=== PATIENT | male | born 1960 | race American Indian/Alaskan Native ===

== ENCOUNTER 2020-08-16 04:31 | Emergency (ER) | payer OTHER, SELFPAY ==
[2020-08-16 04:32] VITALS: BP 163/78; PULSE 70; RESP 18; TEMP 36.4; O2SAT 98; BMI 36.8
--- NOTE | 2020-08-16 04:34 | ED.RN ---
NO OLD EKG FOUND
--- NOTE | 2020-08-16 04:37 | EKG12_ITS ---
Test Reason : CP Blood Pressure : / mmHG Vent. Rate : 068 BPM Atrial Rate : 068 BPM P-R Int : 140 ms QRS Dur : 100 ms QT Int : 392 ms P-R-T Axes : -15 008 003 degrees QTc Int : 416 ms Normal sinus rhythm Low Voltage QRS (Limb Leads) Confirmed by RAND BANGURA, CARISSA ([id number]), food expeditor ISRAEL DOZIER ([id number]) on 08/19/2020 10:25:19 AM Referred By: ROSLYN Confirmed By:CARISSA GORDILLO MD
[2020-08-16 04:38] VITALS: O2SAT 97
--- NOTE | 2020-08-16 04:38 | ED.VIS.GEN ---
History of Present Illness Chief Complaint: Shortness of Breath Informant: Patient Onset: Today Context: Gradual Onset Timing: Waxes and wanes Current Severity: Mild Maximum Severity: Moderate Narrative: Patient presents secondary to shortness of breath and chest tightness. He thinks he might be having an anxiety or panic attack. Patient states that he fell asleep and woke in his chair around 3 AM. He went upstairs and stopped in the kitchen before going up to the second story to go to bed. Patient states that when he laid down in bed he felt like he could not breathe. He felt his chest was tight. He was looking up information about Covid and became very concerned that he might have Covid because shortness of breath is more the symptoms. He now believes he is having a panic attack. Patient denies palpitations. He did not feel he was went to pass out. He denies significant cardiac history. Past Medical History - Allergies and Home Meds Allergies/Adverse Reactions: Allergies Iodinated Contrast Media Allergy (Verified 08/16/20 04:38) Hives shellfish derived Allergy (Verified 08/16/20 04:38) Swelling Primary Care Physician: [facility] Doctor,Out of [NON-STAFF] - Lives: Spouse/ Significant Other Review of Systems General: Denies: Chills, Fever Eyes: Denies: Visual changes - bilaterally ENT: Denies: Bilateral ear pain Cardiovascular: Reports: Chest pain. Denies: Palpitations, Heart racing Respiratory: Reports: Dyspnea. Denies: Cough, Sputum Gastrointestinal: Denies: Abdominal pain, Nausea, Vomiting, Diarrhea Genitourinary: Denies: Dysuria Musculoskeletal: Denies: Swelling, Extremity Pain Skin: Denies: Rash Neurological: Denies: Headache Hematologic: Denies: Easy bruising, Easy bleeding Allergy: Denies: Uticaria Physical Exam Vital Signs/Narrative: Vital Signs Temp Pulse Resp BP Pulse Ox 08/16/20 04:32 97.5 F L 70 18 163/78 H 98 Inital Vital Signs reviewed: Yes General: Well nourished, Well developed Head: Normocephalic Neck: Supple Cardiovascular: Regular rate, Regular rhythm Respiratory: No distress, CTA bilaterally Abdomen: Soft, Nontender, Normal bowel sounds Extremities: Nontender Skin: Normal color Neurological: Alert, Oriented x3, Normal Strength, Normal Sensation Psychological: - - Anxious Diagnostic/Tx/Re-eval Chest X-Ray - ED: 1 View, Read by ED Physician, Chronic Changes, No Infiltrates Impressions Chest X-Ray 08/16/20 04:50 IMPRESSION: Normal x-ray examination of the chest. Electronically Signed: Lorenzo Kumar DO at 5:14 EST Tel , Service support , 08/16/20 04:50 Chest 1 View (Portable) [RAD] Stat 08/16/20 04:40 Mucosa - Nose SARS-CoV-2 Antigen (Rapid) - Final Laboratory Results 08/16/20 08/16/20 04:40 04:40 WBC 5.8 RBC 5.34 Hgb 16.7 H Hct 48.1 MCV 90.1 MCH 31.3 MCHC 34.7 RDW Std Deviation 40.0 RDW Coeff of Conor 12.1 Plt Count 122 L MPV 10.7 Immature Gran % (Auto) 0.200 Neut % (Auto) 49.6 Lymph % (Auto) 38.7 Pender % (Auto) 9.1 Eos % (Auto) 1.4 Baso % (Auto) 1.0 Absolute Neuts (auto) 2.9 Absolute Lymphs (auto) 2.25 Nucleated RBC % 0 Sodium 138 Potassium 4.2 Chloride 105 Carbon Dioxide 28.0 Anion Gap 5 BUN 16 Creatinine 1.07 Estim Creat Clear Calc 73.91 Est GFR (MDRD) Af Amer 90 Est GFR (MDRD) Non-Af 74 BUN/Creatinine Ratio 15.0 Glucose 315 H Calcium 8.3 L Troponin I < 0.015 - EKG Initial EKG Interpretation: Sinus Rhythm - Sinus at 68 with no acute ischemia. - Medical Decision Making Patient presents with chest pressure and shortness of breath possibly related to a panic attack. Patient states he is not able to take aspirin. He was given 0.5 mg of p.o. Ativan. He has been on equipment monitor phototypesetting throughout his ED stay with normal cardiac rhythm. Vital signs been stable. EKG is unremarkable with no sign of acute ischemia. Portable chest x-ray per my interpretation reveals chronic changes with no focal infiltrate. Blood work is reviewed. Patient does have hyperglycemia. He does not know of a history of diabetes. I did advise him to closely follow-up with his primary care physician for further evaluation of this. Initial troponin is negative. HEART score equals 1. Patient will have repeat EKG and repeat troponin performed 3 hours after initial set. If this is also unremarkable patient be discharged home advised to closely follow-up with his primary care physician. This will be signed out to oncoming physician. ED Disposition - Plan for ED Patient: Disposition: Home or Assisted Living Diagnosis: Chest pain, Hyperglycemia Instructions: ED Hyperglycemia New Susp Diabetes, ED Chest Pain, Uncertain Cause Referrals: Hamzah Tiwari MD [STAFF PHYSICIAN] - As soon as possible
[2020-08-16] MEDS: LORazepam 0.5 MG Tablet PO (04:46)
[2020-08-16 04:49] LABS: Absolute Lymphocyte Count 2.25 X10^3/uL (0.83-4.51); Absolute Neutrophil Count 2.9 X10^3/uL (2.0-7.7); Basophil# 0.06 X10^3/uL; Eosinophil# 0.08 X10^3/uL; Eosinophils% 1.4 % (0-5); Hematocrit 48.1 % (40-54); Hemoglobin 16.7 g/dL (13.0-16.5); Lymphocyte # 2.25 X10^3/ul (4.0); Lymphocyte % 38.7 % (19-41); Mean Corp Hgb Conc 34.7 g/dL (32-36); Mean Corpuscular Hgb 31.3 pg (27.0-32.0); Mean Corpuscular Volume 90.1 fL (80-94); Mean Platelet Vol. 10.7 fl (6.2-12.0); Monocyte# 0.53 X10^3/uL; Monocyte% 9.1 % (0-10); NRBC Flagged by Analyzer 0 % (0-5); Neutrophil # 2.89 X10^3/uL (2.7-7.7); Neutrophil % 49.6 % (47-70); Platelet Count 122 K/mm3 (150-450); RBC Distribution Width CV 12.1 % (11.6-14.6); Red Blood Count 5.34 M/mm3 (4.6-6.2); White Blood Count 5.8 K/mm3 (4.4-11.0)
--- NOTE | 2020-08-16 04:50 | RAD_ITS ---
STUDY: X-RAY CHEST REASON FOR EXAM: Male, 60 years old. Shortness of breath that started 2am today TECHNIQUE: Single AP portable view of the chest. COMPARISON: None. FINDINGS: The lungs are clear and expanded. There is no demonstrated pleural abnormality. Normal size heart. Normal mediastinum and reanna. Normal visualized pulmonary arteries. Normal visualized aortic arch and descending thoracic aorta. Normal visualized thoracic spine. Normal visualized ribs, clavicles, and shoulders. There is no demonstrated abnormality of the visualized soft tissue structures of the upper abdomen. RAD/Chest 1 View (Portable) IMPRESSION: Normal x-ray examination of the chest. Electronically Signed: Lorenzo Kumar DO at 5:14 EST Tel , Service support ,
[2020-08-16 05:30] VITALS: BP 129/76; PULSE 63; RESP 16; O2SAT 93
[2020-08-16 05:41] LABS: Anion Gap 5 (5-15); BUN 16 mg/dL (7-18); Calcium,Total 8.3 mg/dL (8.5-10.1); Chloride 105 mmol/L (98-107); Creatinine, Serum 1.07 mg/dL (0.70-1.30); EST Glomerular Filtration Rate 74 mL/min (>60); Est Glom Filt Rate - Afr Amer 90 mL/min (>60); Estimated Creatinine Clearance 73.91 ml/min; Glucose 315 mg/dL (74-106); Potassium 4.2 mmol/L (3.5-5.1); Sodium Level 138 mmol/L (136-145)
[2020-08-16 06:33] VITALS: BP 155/80; PULSE 62; RESP 16; O2SAT 97
--- NOTE | 2020-08-16 07:30 | EKG12_ITS ---
Test Reason : REPEAT Blood Pressure : / mmHG Vent. Rate : 058 BPM Atrial Rate : 058 BPM P-R Int : 128 ms QRS Dur : 094 ms QT Int : 398 ms P-R-T Axes : 088 015 -02 degrees QTc Int : 390 ms Sinus bradycardia Otherwise normal ECG Confirmed by RAND BANGURA, CARISSA ([id number]), map editor ISRAEL DOZIER ([id number]) on 08/19/2020 10:25:33 AM Referred By: MERA Confirmed By:CARISSA GORDILLO MD
[2020-08-16 07:37] VITALS: BP 146/80; PULSE 59; RESP 15; O2SAT 96
[2020-08-16 08:37] VITALS: BP 140/75; PULSE 57; RESP 16; O2SAT 97
== END 2020-08-16 08:41 | disposition home or self-care (01) ==
PROVIDERS: Emergency Provider Emergency Medicine
DX: R07.9 Chest pain, unspecified (principal); R73.9 Hyperglycemia, unspecified
CPT/HCPCS: 71045; 80048; 84484; 85025; 87426; 93005; 99284; A4216

== ENCOUNTER 2020-10-07 08:00 | Outpatient (RCR) | payer OTHER, SELFPAY ==
[2020-10-07] MEDS: COVID-19 VACC, MRNA(PFIZER)/PF 30 MCG/0.3 ML SYRINGE IM (08:26)
[2020-10-28] MEDS: COVID-19 VACC, MRNA(PFIZER)/PF 30 MCG/0.3 ML SYRINGE IM (08:35)
== END 2020-12-30 23:59 ==
LOC: IMMUN 08:00
PROVIDERS: PCP Internal Medicine; Visit Provider Family Medicine
DX: Z23 Encounter for immunization (principal)
CPT/HCPCS: 0001A; 0002A; 91300